=== PATIENT | male | born 1990 | race Caucasian/White ===

== ENCOUNTER 2022-10-11 23:28 | Emergency (ER) | payer BC, OTHER ==
[~2022-10-11] VITALS: Ht 198.1 cm; Wt 159.0 kg
[2022-10-11 23:28] VITALS: BP 132/57
== END 2022-10-12 00:49 | disposition home or self-care (01) ==
LOC: ER 23:28
DX: S80.212A Abrasion, left knee, initial encounter (principal); S80.211A Abrasion, right knee, initial encounter; W01.0XXA Fall on same level from slipping, tripping and stumbling without subsequent striking against object, initial encounter; Y93.89 Activity, other specified; Y92.89 Other specified places as the place of occurrence of the external cause; Y99.8 Other external cause status
CPT/HCPCS: 73562